=== PATIENT | female | born 1945 | race Caucasian/White ===

== ENCOUNTER 2024-08-05 09:31 | Outpatient (RCR) | payer MEDICARE, OTHER, SELFPAY | END 2024-08-22 23:59 | disposition home or self-care (01) | LOC: SCTC 09:31 | PROVIDERS: PCP Physician Assistant; Referring Provider Physician Assistant; Visit Provider Nurse Practitioner Family | DX: Z08 Encounter for follow-up examination after completed treatment for malignant neoplasm (principal); Z85.3 Personal history of malignant neoplasm of breast; Z90.11 Acquired absence of right breast and nipple; Z92.3 Personal history of irradiation; M85.89 Other specified disorders of bone density and structure, multiple sites; Z79.83 Long term (current) use of bisphosphonates | CPT/HCPCS: 99212; G0463 ==

== ENCOUNTER → 2024-12-02 | Outpatient (CLI) | payer MEDICARE, SELFPAY ==
--- NOTE | 2024-12-02 11:30 | XR_ITS ---
Examination: Breast ultrasound, unilateral, right complete Date and time of exam: 10/04/2024 1122 hrs. Indications: Scar formation Indication right breast 33 x 12 mm scar formation right breast ultrasound 06/10/2024 Technique: Real-time stinson scale ultrasonographic imaging performed right breast including all 4 quadrants as well as nipple retroareolar and axillary region. Findings: Stable scar formation right breast 10:00 position Impression: BI-RADS Category 2: Benign findings
== END | disposition home or self-care (01) ==
LOC: CDIM 10:59
PROVIDERS: PCP Physician Assistant; Referring Provider Internal Medicine Hematology & Oncology; Visit Provider Internal Medicine Hematology & Oncology
DX: Z85.3 Personal history of malignant neoplasm of breast (principal)
CPT/HCPCS: 76641

== ENCOUNTER 2024-12-17 13:25 | Outpatient (RCR) | payer MEDICARE, SELFPAY | END 2024-12-21 23:59 | disposition home or self-care (01) | LOC: SCTC 13:25 | PROVIDERS: PCP Physician Assistant; Referring Provider Physician Assistant; Visit Provider Nurse Practitioner Family | DX: Z08 Encounter for follow-up examination after completed treatment for malignant neoplasm (principal); Z90.11 Acquired absence of right breast and nipple; Z85.3 Personal history of malignant neoplasm of breast; R53.83 Other fatigue; Z92.21 Personal history of antineoplastic chemotherapy; M85.80 Other specified disorders of bone density and structure, unspecified site; Z79.83 Long term (current) use of bisphosphonates | CPT/HCPCS: 99212; G0463 ==

== ENCOUNTER → 2025-01-15 | Outpatient (CLI) | payer MEDICARE, SELFPAY ==
[2025-01-14 12:24] LABS: Basophils % (Auto) 0 % (0-2.5); Eosinophils # (Auto) 0.3 Thou/mm3 (0.0-0.5); Eosinophils % (Auto) 4 % (0-10); Hematocrit 36.9 % (36.0-46.0); Hemoglobin 12.1 g/dL (12.0-16.0); Immature Granulocytes % (Auto) 0 % (0-0); Immature Granulocytes Auto 0.03 Thou/mm3 (0.00-0.00); Lymphocytes # (Auto) 1.3 Thou/mm3 (1.0-4.8); Lymphocytes % (Auto) 20 % (10-50); Mean Corpuscular HGB Conc 32.8 g/dl (31.0-37.0); Mean Corpuscular Hemoglobin 32.4 pg (25.0-35.0); Mean Corpuscular Volume 99 fL (80-100); Monocytes # (Auto) 0.6 Thou/mm3 (0.0-0.8); Monocytes % (Auto) 8 % (0-12); Neutrophils # (Auto) 4.6 Thou/mm3 (1.8-7.7); Neutrophils % (Auto) 68 % (37-80); Nucleated Red Blood Cell % 0 /100 WBC (0); Platelet Count 189 Thou/mm3 (140-440); RDW Standard Deviation 44.1 fL (36.4-46.3); Red Blood Count 3.73 Miln/mm3 (4.00-5.20); White Blood Count 6.8 Thou/mm3 (3.6-11.0)
[2025-01-14 12:31] LABS: Alanine Aminotransferase 25 U/L (10-49); Albumin, Serum 4.4 gm/dL (3.4-4.8); Alkaline Phosphatase 46 U/L (46-116); Anion Gap 7 (7-16); Aspartate Amino Transferase 23 U/L (0-34); BUN/Creatinine Ratio 18 Ratio (12-20); Bilirubin,Total 0.5 mg/dL (0.3-1.2); Blood Urea Nitrogen 24 mg/dL (9-23); Calcium 10.1 mg/dL (8.3-10.6); Calcium (Corrected) 10.1 mg/dL (8.5-10.1); Carbon Dioxide 27.6 mMol/L (20.0-31.0); Chloride 107 mMol/L (98-107); Creatinine (Component) 1.3 mg/dL (0.6-1.3); Globulin 2.2 gm/dL (2.3-3.5); Glucose 259 mg/dL (74-106); Osmolality,Calculated 296 (275-295); Potassium 4.3 mMol/L (3.4-5.1); Sodium 142 mMol/L (136-145); Total Protein 6.6 gm/dL (5.7-8.2); eGFR 42 See Note
--- NOTE | 2025-01-15 11:30 | XR_ITS ---
Examination: CT chest with intravenous contrast CT abdomen with intravenous contrast CT pelvis with intravenous contrast 2-D coronal and sagittal reconstructions Time of exam: January 15, 2025 1105 hours Comparison right breast sonogram December 02, 2024, right breast sonogram 06/10/2024, mammogram May 21, 2024 INDICATIONS: Diagnosis right breast cancer post lumpectomy radiation therapy restaging CTDI: vol (mGy) : 23.7 DLP: (mGycm): 961 Technique: Multiple axial images of the chest, abdomen and pelvis with intravenous contrast, 3.0 mm slice thickness. Images obtained post intravenous injection Isovue 370 60 cc. 2-D sagittal and coronal reconstructions. Low dose protocols were performed. One or more of the following dose reduction techniques were used; automated exposure control, adjustment of the mA and/or KV according to patient size, use of iterative reconstruction technique. Findings: 10 mm enhancing left thyroid nodule No thoracic aortic aneurysm dilatation No pulmonary artery filling defects No paratracheal tracheobronchial or bronchopulmonary adenopathy Nodular breast architecture 18 mm nodule lateral right breast with breast biopsy marker No pathologic axillary lymphadenopathy Presumed scar formation upper lateral right breast 22 mm 8 bilateral pulmonary nodules, the largest in the right upper lobe measuring 11 mm No pneumonia or pulmonary edema No focal liver or splenic lesions Contracted gallbladder No pancreatic or adrenal mass No abdominal or pelvic lymphadenopathy Right and left extrarenal pelvis Abdominal aorta is not enlarged No pelvic mass Urinary bladder intact Prominent osteopenia IMPRESSION: Right breast nodules as above, recommend this patient return for repeat dedicated right breast sonography with the radiologist in attendance Bilateral pulmonary nodules as above, the largest in the right upper lobe measuring 11 mm consistent with early pulmonary nodular metastatic disease No interval hepatic lesions No interval abdominal or pelvic lymphadenopathy
== END | disposition home or self-care (01) ==
LOC: SCTO 10:52
PROVIDERS: PCP Physician Assistant; Referring Provider Nurse Practitioner Family; Visit Provider Nurse Practitioner Family
DX: Z85.3 Personal history of malignant neoplasm of breast (principal)
CPT/HCPCS: 36415; 71260; 74177; 80053; 85025; A4649; Q9967

== ENCOUNTER 2025-02-16 13:10 | Outpatient (RCR) | payer MEDICARE, SELFPAY | END 2025-02-20 23:59 | disposition home or self-care (01) | LOC: SCTC 13:10 | PROVIDERS: PCP Physician Assistant; Referring Provider Physician Assistant; Visit Provider Nurse Practitioner Family | DX: Z08 Encounter for follow-up examination after completed treatment for malignant neoplasm (principal); Z85.3 Personal history of malignant neoplasm of breast; Z90.11 Acquired absence of right breast and nipple; Z92.3 Personal history of irradiation; M85.88 Other specified disorders of bone density and structure, other site | CPT/HCPCS: 99212; G0463 ==

== ENCOUNTER → 2025-03-04 | Outpatient (CLI) | payer MEDICARE, SELFPAY ==
--- NOTE | 2025-03-04 08:30 | XR_ITS ---
Examination: Breast ultrasound, unilateral, right complete Date and time of exam: March 04, 2025 0802 hours INDICATIONS: Personal history of malignant neoplasm breast, history right breast lumpectomy March 03, 2014, right breast sonogram December 02, 2024 scar formation right breast 10:00 position Technique: Real-time stinson scale ultrasonographic imaging performed right breast including all 4 quadrants as well as nipple retroareolar and axillary region. Findings: Stable scar formation 10:00 position right breast with right breast biopsy marker No interval suspicious masses IMPRESSION: BI-RADS Category 2: Benign findings
== END | disposition home or self-care (01) ==
LOC: CDIM 07:50
PROVIDERS: PCP Physician Assistant; Referring Provider Nurse Practitioner Family; Visit Provider Nurse Practitioner Family
DX: Z85.3 Personal history of malignant neoplasm of breast (principal)
CPT/HCPCS: 76641

== ENCOUNTER 2025-03-25 11:09 | Outpatient (RCR) | payer MEDICARE, SELFPAY ==
--- NOTE | 2025-04-12 00:09 | CTCFLWUP_ITS ---
Patient: RAISSA TORIBIO : 1945 Page 5 of 7 FOLLOW UP NOTE DATE OF SERVICE: 03/25/2025 NAME: RAISSA TORIBIO ACCOUNT: [id number] : 1945 AGE: 79 INTERVAL HISTORY: Raissa Toribio presents for breast cancer follow up with multiple concerns, including a persistent dry cough, weight loss, and balance issues. She reports a dry, hacky cough that has been ongoing for about a month, describing it as intermittent and non-productive. The patient has experienced weight loss. She attributes this partly to changes in eating habits, now having a light breakfast, no lunch, and dinner at 4:30 PM, with some snacks. Raissa has noticed balance problems for about one months. She reports feeling off-balance. She denies headaches or dizziness associated with these balance issues. Subjective: Chief Complaint Breast cancer follow-up, persistent dry cough for about a month, weight loss, balance problems for about one month History of Present Illness Raissa Toribio, a patient with a history of right breast cancer treated with lumpectomy and radiation therapy, presents for follow-up with multiple concerns including a persistent dry cough, weight loss, and balance issues. The patient reports a dry, hacky cough that has been ongoing for about a month. She describes it as intermittent and nonproductive, likening it to an allergy cough or postnasal drip. Raissa has also experienced significant weight loss, dropping from 224 pounds to 160 pounds, with a recent loss of 10 pounds over the past 6 months. She attributes part of this weight loss to changes in her diet habits, now having a light breakfast, no lunch, and dinner at 4:30 pm with some snacks. For approximately one month, Raissa has noticed balance problems. She reports feeling off balance but denies any associated headaches or dizziness. These balance issues have been impacting her daily functioning. Raissa's breast cancer history is significant. She underwent a lumpectomy at a [facility], followed by adjuvant radiation therapy. She did not receive chemotherapy. She took letrozole for almost 10 years, starting in 2013 and stopping in December 2023. Currently, she takes medication for osteopenia, along with Soma and calcium, which she started in April 2023. Medications and Supplements - Letrozole - Taken for about 10 years since 2013 - Stopped in December 2023 - Calcium - Taken since May 16, 2023 - For osteopenia Review of Systems General: Positive for unintentional weight loss. Negative for fever, chills. HEENT: Positive for postnasal drip. Respiratory: Positive for dry, hacky, intermittent, nonproductive cough. Neurological: Positive for balance problems. Negative for headaches, dizziness. Objective: Vital Signs - Weight: 160 kg Laboratory, Imaging, and Diagnostic Test Results - Date: January 2025 - CBC: - Hemoglobin: Normal (specific value not provided) - MCV: 100 (high) - Neutrophils: 8.9 (high) - Lymphocytes: Low (specific value not provided) - CMP: - Creatinine: High (specific value not provided) - Liver enzymes: Normal - Tumor markers: Normal - CEA: Normal - CT scan of chest, abdomen, and pelvis (12/25/2024): Bilateral pulmonary nodules, largest 11 mm, consistent with early pulmonary metastatic breast nodules - Ultrasound of right breast (January 2025): Negative, only scar tissue visualized ONCOLOGY HISTORY:?[facility] Hx? History of right breast cancer. Patient had lumpectomy done on 03/03/2014 at a [facility] facility close to the [facility]. Patient had follow-up adjuvant radiation therapy. Did not have any chemotherapy. She had been on adjuvant letrozole since her surgery 2013, stopped 12/31/2023. Osteopenia, Fosamax and calcium, 05/16/2023. DIAGNOSIS: History of right breast cancer. Patient had lumpectomy done on 03/03/2014 at a [facility] facility close to the [facility]. Patient had follow-up adjuvant radiation therapy. Did not have any chemotherapy. She had been on adjuvant letrozole since her surgery 2013, stopped 12/31/2023. Osteopenia, Fosamax and calcium, 05/16/2023. Memory problems, lives with sister. DATE OF DIAGNOSIS: 03/03/2014 STAGE/TNM: TREATMENT HISTORY: Care?Plan Start?Date Cycle Day Intent HISTORY OF PRESENT ILLNESS: HISTORY: Raissa Toribio is a 79-year-old ENG speaking female referred to oncology clinic for history of breast cancer. Ms. Toribio is a poor historian. She has problems with her memory. Patient lives with sister. We do not have any of the records relating to her breast cancer. According to Ms. Toribio she had a lumpectomy done on 03/03/2014 at a [facility] facility near the [facility]. She does not know the name of the city. Following surgery, she had radiation therapy for 6 weeks. Was on letrozole from 2013 to 04/11/2023. 05/16/2023 DEXA: 06/03/2023 ultrasound of breast bilateral complete: 01/28/2024: Right breast biopsy 05/21/2024: Bilateral breast mammogram-recommend bilateral breast ultrasound, need additional imaging 06/10/2024: Bilateral breast [id number] Category 3, probably benign findings, 1 additional continue 6-month right breast ultrasound follow-up strongly recommended, scar formation to right breast OTHER MEDICAL HISTORY/CONDITIONS: BREAST CANCER RIGHT DIABETES HYPERTENSION ASTHMA CATARACTS BILATERAL 2021 MEASLES,MUMPS, CHICKENPOX LUMPECTOMY RIGHT SIDE 2013 CARPAN TUNNEL RIGHT [id number] NECK SURGERY 2017 FAMILY HISTORY: Father:?FATHER?MELANOMA?ON?BACK Mother:?DENIES Sibling:?SISTER?CANCER?UNKNOWN?TYPE Children:?DENIES Cancer?History:?RIGHT?SIDE?BREAST?CA SOCIAL HISTORY: 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 alendronate - 35 mg 1 tab one tab po q weekly 2. aspirin - 81 mg 1 tab Daily 3. B12 - 5,000-100 mcg 1 tab Daily 4. gabapentin - 300 mg 1 Capsule Every day before sleep 5. iron - 325 mg (65 mg iron) 1 Capsule Daily 6. Jardiance - 25 mg 1 tab Daily 7. metFORMIN - 1,000 mg 1 tab Twice a Day 8. montelukast - 10 mg 1 tab Daily 9. Renavit Multivitamin - 0.8 mg tab Daily 10. simvastatin - 20 mg 1 tab Daily 11. Vitamin C - 1,000 mg 1 tab Daily 12. vitamin K2 - 100 mcg 1 Capsule Daily?Palabra Meds? Medications Last Reconciled by Indiana Carmichael MA on 03/25/2025 ALLERGIES: REVIEW OF SYSTEMS: A complete 14-point review of systems was performed and is negative except as noted in interval history. PHYSICAL EXAMINATION:?[facility] PE? VITAL SIGNS: Temperature?97.7, B/P?126/72, Oxygen?Saturation?98% Weight?160?lbs PAIN: 0 - No pain ECOG Performance Status: 0 - Asymptomatic and fully active Not done, visit was virtual LABORATORY DATA: I have personally reviewed and interpreted each of the patient?s relevant lab tests, abnormal findings are below: Date 01/14/25 03/11/25 ??WHITE?BLOOD?COUNT?(Thou/mm3) 6.8 7.7 ??RED?BLOOD?COUNT?(Miln/mm3) 3.73?L 3.61?L ??HEMOGLOBIN?(gm/dl) 12.1 11.8?L ??HEMATOCRIT?(%) 36.9 35.8?L ??PLATELET?COUNT?(Thou/mm3) 189 198 ??NEUTROPHILS?%,?AUTO?(%) 68 70 ??LYMPH?%,?AUTO?(%) 20 14 ??NEUTROPHILS,?AUTO?(Thou/mm3) 4.6 5.4 ??GLUCOSE,RANDOM?(mg/dL) 259?H 119?H ??BLOOD?UREA?NITROGEN?(mg/dL) 24?H 16 ??CREATININE?(mg/dL) 1.30 1.30 ??SODIUM?(mmol/L) 142 142 ??POTASSIUM?(mmol/L) 4.3 4.3 ??CHLORIDE?(mmol/L) 107 106 ??CrCl?(CandG)?(ml/min) 36.90 35.97 ??AST/SGOT?(Unit/L) 23 24 ??ALT/SGPT?(Unit/L) 25 19 ??ALKALINE?PHOSPHATASE?(Unit/L) 46 43?L ??BILIRUBIN,?TOTAL?(mg/dL) 0.5 0.5 ??PROTEIN?TOTAL?(gm/dl) 6.6 6.2 ??ALBUMIN,?SERUM?(gm/dl) 4.4 4.1 ??GLOBULIN?(gm/dl) 2.2?L 2.1?L ??ALBUMIN/GLOBULIN?RATIO 2.0 2.0 ??CALCIUM,?SERUM?(mg/dL) 10.1 9.3 ??CALCIUM?SERUM?(CORRECTED)?(mg/dL) 10.1 9.3 ASSESSMENT/PLAN:?Raymond Tripathi Assessment/Plan? 1. History of right breast cancer. Status postlumpectomy on 03/03/2014 followed by adjuvant radiation therapy. Patient did not have any adjuvant chemotherapy. Since the surgery patient was placed on letrozole from 2013, completed treatment, stopped on 12/31/2023. We do not have records from [facility] oncology. Right breast biopsy done on 01/28/2024, negative for malignancy. Right breast ultrasound showed stable scar formation right breast, 12/01/2024. Bilateral breast mammogram is due 04/2025, ordered. Requesting oncology records from [place], the [place] records available are from primary practice. CT of chest abdomen and pelvis shows bilateral pulmonary nodules the largest in the right upper lobe measuring 11 mm consistent with early pulmonary nodular metastatic disease, right breast nodules recommend repeat right breast ultrasound with radiologist in attendance, 01/15/2025 Plan: Deysi test MRI of brain with contrast due to feeling off balance, ER precautions given due to dizziness CT-guided biopsy of the right pulmonary nodule seen on CT done on 01/15/2025 Right breast ultrasound CBC CMP CEA CA 15-3 Request oncology records again from [place]. Patient advised to bring her sister to her next appointment to discuss plan of care and results Colonoscopy screening referral due to recent weight loss, no previous colonoscopies. 2. DEXA, osteopenia, taking Fosamax 35 mg weekly, taking [id number] daily calcium supplement, (05/16/2023). Declined Reclast or Prolia, patient travels from [facility] to appointments, reports transportation issues. 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 This finding is concerning given the patient's history of right breast cancer treated with lumpectomy and adjuvant radiation therapy. The patient reports a dry, hacky cough for about a month, which could be related to the pulmonary nodules. Recent lab results show slightly elevated MCV and neutrophils, with low lymphocytes, which may be indicative of an underlying process. Plan: - CT-guided biopsy of the right pulmonary nodule scheduled - Netera testing ordered - Obtain records from [place] - CBC, CMP, and CEA ordered in January (results reviewed) - Ultrasound of the right breast completed (negative, only scar tissue noted) - Add flow cytometry test, to be done manager welding - Advised patient to bring her sister to the next appointment for helping to understand the plan and remember the plan Unintentional Weight Loss Assessment: Patient reports significant weight loss from 224 lbs to 160 lbs, with a recent loss of 10 pounds over almost 6 months. This unintentional weight loss is concerning, especially in the context of her cancer history and recent pulmonary findings. The patient has made changes to her diet habits, including a light breakfast, no lunch, and early dinner at 4:30 pm with some snacks, which may contribute to the weight loss but does not fully explain its extent. Plan: - CT scan ordered for evaluation of unintentional weight loss - Colonoscopy recommended (patient has not had previous colonoscopies) - Thyroid function tests to be checked - Folic acid and B12 ordered (possibly to address elevated MCV) Balance Issues Assessment: Patient reports feeling off balance for about one month, denying associated headaches or dizziness. Given her history of breast cancer and the recent pulmonary findings, there is a concern for potential central nervous system involvement. Plan: - MRI of the brain with contrast ordered Osteopenia Assessment: Patient has a history of osteopenia and has been on treatment since May 16, 2023. Plan: - Continue Soma and calcium (started May 16, 2023) Persistent Dry Cough Assessment: Patient reports a dry, hacky cough ongoing for about a month, described as intermittent and nonproductive. While this could be related to the pulmonary nodules, the patient also mentions it feels like an allergy cough, possibly due to postnasal drip. Plan: - Monitor cough in context of pulmonary nodule evaluation Order # Description RETURN TO CLINIC: I reviewed the diagnosis, prognosis, and recommended treatment/procedure options with the patient (and/or their legal quality control representative), including the potential benefits, risks, side effects and alternative therapies. We also discussed the option of no treatment and the possibility of clinical trial participation, if applicable. All questions were addressed, and they demonstrated understanding. They provided informed consent to proceed with the proposed plan of care. BILLING AND COMPLIANCE: I reviewed external records from providers outside my specialty as summarized above. I spent a total of 50 minutes on this patient?s care on the day of their visit excluding time spent related to any billed procedures. This time includes time spent with the patient as well as time spent documenting in the medical record, reviewing patients records and tests, obtaining history, placing orders, communicating with other healthcare professionals, counseling the patient, family or caregiver, and/or care coordination for the diagnoses above. Electronically Signed by: Cedric Tripathi MD T: 12:07 AM CC: PCP: Cedric Tripathi Referring: Cedric Tripathi This document was completed utilizing speech recognition software. Grammatical errors, random word insertions, pronoun errors, and incomplete sentences are an occasional consequence of this system due to software limitations, ambient noise, and hardware issues. Any formal questions or concerns about the content, text or information contained within the body of this dictation should be directly addressed to the provider for clarification.
== END 2025-04-22 23:59 | disposition home or self-care (01) ==
LOC: SCTC 11:09
PROVIDERS: PCP Physician Assistant; Referring Provider Internal Medicine Hematology & Oncology; Visit Provider Internal Medicine Hematology & Oncology
DX: Z08 Encounter for follow-up examination after completed treatment for malignant neoplasm (principal); Z85.3 Personal history of malignant neoplasm of breast; Z92.3 Personal history of irradiation; R91.8 Other nonspecific abnormal finding of lung field; M85.88 Other specified disorders of bone density and structure, other site; R63.4 Abnormal weight loss; Z68.27 Body mass index [BMI] 27.0-27.9, adult; R26.89 Other abnormalities of gait and mobility; R05.3 Chronic cough
CPT/HCPCS: 99212; G0463

== ENCOUNTER → 2025-04-01 | Outpatient (CLI) | payer MEDICARE, SELFPAY ==
[2025-03-11 09:41] LABS: Basophils # (Auto) 0.0 Thou/mm3 (0.0-0.2); Basophils % (Auto) 0 % (0-2.5); Eosinophils # (Auto) 0.5 Thou/mm3 (0.0-0.5); Eosinophils % (Auto) 7 % (0-10); Hematocrit 35.8 % (36.0-46.0); Hemoglobin 11.8 g/dL (12.0-16.0); Immature Granulocytes Auto 0.04 Thou/mm3 (0.00-0.00); Lymphocytes # (Auto) 1.1 Thou/mm3 (1.0-4.8); Lymphocytes % (Auto) 14 % (10-50); Mean Corpuscular HGB Conc 33.0 g/dl (31.0-37.0); Mean Corpuscular Hemoglobin 32.7 pg (25.0-35.0); Mean Corpuscular Volume 99 fL (80-100); Monocytes # (Auto) 0.7 Thou/mm3 (0.0-0.8); Monocytes % (Auto) 9 % (0-12); Neutrophils # (Auto) 5.4 Thou/mm3 (1.8-7.7); Neutrophils % (Auto) 70 % (37-80); Nucleated Red Blood Cell # 0.00 Thou/mm3 (0.00-0.00); Nucleated Red Blood Cell % 0 /100 WBC (0); Platelet Count 198 Thou/mm3 (140-440); RDW Standard Deviation 44.2 fL (36.4-46.3); Red Blood Count 3.61 Miln/mm3 (4.00-5.20); White Blood Count 7.7 Thou/mm3 (3.6-11.0)
[2025-03-11 10:06] LABS: Alanine Aminotransferase 19 U/L (10-49); Albumin, Serum 4.1 gm/dL (3.4-4.8); Albumin/Globulin Ratio 2.0 (1.2-2.2); Alkaline Phosphatase 43 U/L (46-116); Anion Gap 10 (7-16); Aspartate Amino Transferase 24 U/L (0-34); BUN/Creatinine Ratio 12 Ratio (12-20); Bilirubin,Total 0.5 mg/dL (0.3-1.2); Blood Urea Nitrogen 16 mg/dL (9-23); Calcium 9.3 mg/dL (8.3-10.6); Calcium (Corrected) 9.3 mg/dL (8.5-10.1); Carbon Dioxide 26.1 mMol/L (20.0-31.0); Chloride 106 mMol/L (98-107); Creatinine (Component) 1.3 mg/dL (0.6-1.3); Globulin 2.1 gm/dL (2.3-3.5); Glucose 119 mg/dL (74-106); Osmolality,Calculated 285 (275-295); Potassium 4.3 mMol/L (3.4-5.1); Sodium 142 mMol/L (136-145); Total Protein 6.2 gm/dL (5.7-8.2); eGFR 42 See Note
--- NOTE | 2025-04-01 12:00 | XR_ITS ---
Examination: MRI brain with intravenous contrast TECHNIQUE: Multiple axial sagittal coronal brain MRI images post intravenous ministration 14 cc gadolinium Date and time: April 01, 2025 1213 hours INDICATIONS: Diagnosis malignant neoplasm breast, headaches 2 months FINDINGS: Ventricles normal size and configuration. No mass effect upon the ventricular system No effacement of the cortical sulcal markings. Fourth ventricle midline. No abnormal enhancing cerebellar or cerebral lesions Pituitary is not enlarged No pituitary microadenoma IMPRESSION: No abnormal enhancing cerebellar or cerebral lesions
== END | disposition home or self-care (01) ==
LOC: SMRI 11:32
PROVIDERS: PCP Physician Assistant; Referring Provider Nurse Practitioner Family; Visit Provider Nurse Practitioner Family
DX: R51.9 Headache, unspecified (principal); Z85.3 Personal history of malignant neoplasm of breast
CPT/HCPCS: 36415; 70552; 80053; 85025; A9579

== ENCOUNTER → 2025-04-15 | Outpatient (CLI) | payer MEDICARE, SELFPAY ==
[2025-04-15 11:15] LABS: Basophils # (Auto) 0.0 Thou/mm3 (0.0-0.2); Basophils % (Auto) 0 % (0-2.5); Eosinophils # (Auto) 0.3 Thou/mm3 (0.0-0.5); Eosinophils % (Auto) 4 % (0-10); Hematocrit 34.4 % (36.0-46.0); Hemoglobin 11.3 g/dL (12.0-16.0); Immature Granulocytes Auto 0.03 Thou/mm3 (0.00-0.00); Lymphocytes # (Auto) 1.2 Thou/mm3 (1.0-4.8); Lymphocytes % (Auto) 16 % (10-50); Mean Corpuscular HGB Conc 32.8 g/dl (31.0-37.0); Mean Corpuscular Hemoglobin 32.9 pg (25.0-35.0); Mean Corpuscular Volume 100 fL (80-100); Monocytes # (Auto) 0.6 Thou/mm3 (0.0-0.8); Monocytes % (Auto) 8 % (0-12); Neutrophils # (Auto) 5.4 Thou/mm3 (1.8-7.7); Neutrophils % (Auto) 72 % (37-80); Nucleated Red Blood Cell # 0.00 Thou/mm3 (0.00-0.00); Nucleated Red Blood Cell % 0 /100 WBC (0); Platelet Count 172 Thou/mm3 (140-440); RDW Standard Deviation 46.5 fL (36.4-46.3); Red Blood Count 3.43 Miln/mm3 (4.00-5.20); White Blood Count 7.5 Thou/mm3 (3.6-11.0)
[2025-04-15 11:28] LABS: Alanine Aminotransferase 16 U/L (10-49); Albumin, Serum 4.2 gm/dL (3.4-4.8); Albumin/Globulin Ratio 1.8 (1.2-2.2); Alkaline Phosphatase 35 U/L (46-116); Anion Gap 10 (7-16); Aspartate Amino Transferase 25 U/L (0-34); BUN/Creatinine Ratio 18 Ratio (12-20); Bilirubin,Total 0.5 mg/dL (0.3-1.2); Blood Urea Nitrogen 22 mg/dL (9-23); Calcium 9.5 mg/dL (8.3-10.6); Calcium (Corrected) 9.5 mg/dL (8.5-10.1); Carbon Dioxide 24.7 mMol/L (20.0-31.0); Chloride 109 mMol/L (98-107); Creatinine (Component) 1.2 mg/dL (0.6-1.3); Globulin 2.3 gm/dL (2.3-3.5); Glucose 91 mg/dL (74-106); Osmolality,Calculated 290 (275-295); Potassium 4.6 mMol/L (3.4-5.1); Sodium 144 mMol/L (136-145); Total Protein 6.5 gm/dL (5.7-8.2); eGFR 47 See Note
== END | disposition home or self-care (01) ==
PROVIDERS: PCP Physician Assistant; Referring Provider Nurse Practitioner Family; Visit Provider Nurse Practitioner Family
DX: Z85.3 Personal history of malignant neoplasm of breast (principal)
CPT/HCPCS: 36415; 80053; 85025

== ENCOUNTER → 2025-05-21 | Outpatient (CLI) | payer MEDICARE, SELFPAY ==
--- NOTE | 2025-05-21 12:20 | XR_ITS ---
Examination: Bone densitometry Date and time of exam:May 21, 2025, 1248 hours INDICATIONS: Menopause age 52 vitamin D 3 years diabetic Technique: Lumbar spine and hip total bone mineralization values of an calculated. Peak reference and age match control results have been displayed. Findings: Lumbar spine total bone mineralization is1.192 gm/cm2. This is 1.3 standard deviations above peak reference. This is 3.9 standard deviations above age-matched controls. Hip total bone mineralization is 0.942 gm/cm2 This is 0.0 standard deviations at peak reference. This is 1.9 standard deviations above age-matched controls Impression: There is normal mineralization based on lumbar spine measurements. There is normal mineralization based on hip measurements Lumbar mineralization is decreased 1.7% compared with May 16, 2023 Hip mineralization is decreased 9.5% compared with May 16, 2023
== END | disposition home or self-care (01) ==
LOC: CDIM 11:40
PROVIDERS: PCP Physician Assistant; Referring Provider Nurse Practitioner Family; Visit Provider Nurse Practitioner Family
DX: M81.0 Age-related osteoporosis without current pathological fracture (principal); Z85.3 Personal history of malignant neoplasm of breast
CPT/HCPCS: 77080

== ENCOUNTER → 2025-05-25 | Outpatient (CLI) | payer MEDICARE, SELFPAY ==
--- NOTE | 2025-05-25 10:15 | XR_ITS ---
Examination: Screening digital mammography, bilateral Computer aided detection 3-D breast Tomosynthesis, bilateral Date and time of exam: May 25, 2025 0940 hours Compared to mammograms dating to May 16, 2023 Indication: Screening Technique: Nonmagnified MLO, CC views of the breasts to been obtained, reconstructed from 3-D Tomosynthesis images. R2 computer aided detection program utilized for evaluation of suspicious masses and/or abnormal calcifications. 3-D Tomosynthesis images obtained. Findings: The breasts are heterogeneously dense which may obscure small masses The breasts are nodular in configuration. Stable scar formation upper outer right breast right breast skin thickening consistent with treated right breast cancer including lumpectomy Benign vascular calcifications Impression: BI-RADS Category 0: Incomplete: Need additional imaging evaluation The breast architecture is heterogeneously dense and nodular Recommend repeat bilateral breast sonography follow-up.
== END | disposition home or self-care (01) ==
LOC: CDIM 09:26
PROVIDERS: Referring Provider Nurse Practitioner Family; Visit Provider Nurse Practitioner Family
DX: Z12.31 Encounter for screening mammogram for malignant neoplasm of breast (principal); R92.333 Mammographic heterogeneous density, bilateral breasts; N63.0 Unspecified lump in unspecified breast; R92.8 Other abnormal and inconclusive findings on diagnostic imaging of breast; Z85.3 Personal history of malignant neoplasm of breast
CPT/HCPCS: 77063; 77067